=== PATIENT | female | born 1965 | race Caucasian/White ===

== ENCOUNTER 2022-10-06 07:35 | Day surgery (SDC) | payer OTHER ==
[~2022-10-06] VITALS: Ht 162.6 cm; Wt 77.1 kg
[~2022-10-06 07:35] MED LIST: ESTRACE42.5 GM VAGINAL; PRESERVISION A1 EAC4 PO
[2022-10-06 07:55] VITALS: BP 116/61
--- NOTE | 2022-10-06 09:13 | NUR ---
10/06/22 0913 Roma Bell 0910 PATIENT ARRIVES TO PACU RESTING WITH EYES CLOSED. AWAKENS WITH VERBAL STIMULI, BACK TO SLEEP WHEN NOT STIMULATED. RESP EVEN AND UNLABORED, NC AT 3 LITERS TURNED OFF ON ARRIVAL TO PACU. PASSING GAS.
[2022-10-06 09:44] VITALS: BP 107/63
--- NOTE | 2022-10-06 10:03 | NUR ---
PT ALERT, ORIENTED AND HERE FOR HER FIRST SCOPE. PT DEALT WITH PREP OK. HER JUAN CARLOS WILL RETURN AT [facility]. ALL QUESTIONS ASKED ANSWERED. PT REQUESTED PRAYER. WILL FOLLOW
--- NOTE | 2022-10-06 12:48 | OR ---
[facility] [address] [place], [place] [address] Signed DATE OF OPERATION: 10/06/2022 SURGEON: Priscila Ayon MD PREOPERATIVE DIAGNOSIS: Positive Cologuard test. POSTOPERATIVE DIAGNOSES: Polyps x3, small polyp cecum and splenic flexure and hyperplastic polyp of rectosigmoid. PROCEDURE: Total colonoscopy to cecum with cold morcellation polypectomy x3. ANESTHESIA: Intravenous sedation; fentanyl 150 mcg, Versed 6 mg. INDICATION: This 57-year-old white woman is a patient of Dr. Nurys Alexander and is noted to have a positive family history of colon cancer in a maternal aunt. She has no personal history of polyp in the past. She is in good health overall. She had closure of a patent foramen ovale in 2010. She underwent Cologuard testing on March 30, 2022 which was positive and on that basis, colonoscopy is recommended. The risk of bleeding, infection, perforation, and so forth were reviewed with her. She understands and wished to proceed. FINDINGS: The prep was good. Complete colonoscopy was undertaken of the cecum. There were 3 small polyps, 2 of them adenomatous, none of them worrisome for malignancy. There were no other findings of concern. DESCRIPTION OF PROCEDURE: The patient was brought to the endoscopy suite and placed in the lateral decubitus position, given intravenous sedation to the point of slurred speech and nystagmus. Digital rectal examination was normal. An Olympus video colonoscope was passed in the rectum and manipulated throughout the colon ultimately intubating the cecum itself. The ileocecal valve and appendiceal orifice were normal. The scope was withdrawn and in the proximal ascending colon, there was a small adenomatous appearing polyp, this was excised with cold morcellation technique. Further withdrawal showed another similar such polyp at the splenic flexure, Electronically Signed By: PRISCILA AYON MD 10/06/22 1248 PATIENT NAME: STEVE PANTOJA OPERATIVE REPORT DATE OF : 63 REPORT #: [id number] PHYSICIAN: PRISCILA AYON MD PCP: NURYS ALEXANDER MD REPORT IS CONFIDENTIAL AND NOT TO BE RELEASED WITHOUT AUTHORIZATION [facility] [address] [place], [place] [address] Signed which was also excised with cold morcellation technique. Further withdrawal to the rectosigmoid showed a hyperplastic polyp, which was excised, though quite unlikely to be adenomatous. Retroflexed view of the rectum was normal. The scope was removed and the patient was taken to the recovery room in good condition. CONCLUDING DIAGNOSIS: Two adenomatous appearing polyps and one hyperplastic polyp. PLAN: Recommend repeat colonoscopy in three years, sooner if clinically indicated. She will return to the ongoing care of Dr. Alexander. MD ROSMERY Mejía/MODL /[id number] cc: Dr. Nurys Alexander Copies: ~ Electronically Signed By: PRISCILA AYON MD 10/06/22 1248 PATIENT NAME: STEVE PANTOJA OPERATIVE REPORT DATE OF : 63 REPORT #: [id number] PHYSICIAN: PRISCILA AYON MD PCP: NURYS ALEXANDER MD REPORT IS CONFIDENTIAL AND NOT TO BE RELEASED WITHOUT AUTHORIZATION
--- NOTE | 2022-10-09 13:32 | PATH ---
[facility] [address] [place], [place] [address] Signed SPECIMEN(S): A CECUM POLYP SPECIMEN(S): B SPLENIC FLEXURE POLYP SPECIMEN(S): C RECTOSIGMOID POLYP SPECIMEN SOURCE: A. CECUM POLYP B. SPLENIC FLEXURE POLYP C. RECTOSIGMOID POLYP CLINICAL HISTORY: Positive Cologuard, family history of colon CA. Postop: Polyps x 3. FINAL PATHOLOGIC DIAGNOSIS: A. Cecum polyp: - Serrated polyp / adenoma (two fragments). B. Splenic flexure polyp: - Tubular adenoma (one fragment). C. Rectosigmoid polyp: - Hyperplastic polyp (one fragment). JVR:[id number] MICROSCOPIC EXAMINATION: Histologic sections of all submitted blocks are examined by light microscopy. These findings, together with the gross examination, support the pathologic diagnosis. GROSS DESCRIPTION: A. The specimen, labeled and designated "Pantoja, cecum polyp," is received in formalin and consists of four toribio soft tissue fragments, ranging from 0.2-0.5 cm. Entirely submitted in (A1). B. The specimen, labeled and designated "Pantoja, splenic flexure polyp," is received in formalin and consists of two toribio soft tissue fragments, ranging from 0.2-0.3 cm. Entirely submitted in (B1). C. The specimen, labeled and designated "Pantoja, rectosigmoid polyp," is received in formalin and consists of two toribio soft tissue fragments, ranging from 0.1-0.2 cm. Entirely submitted in (C1). VB (under the direct supervision of a pathologist) The Gross Description was prepared using a voice recognition system. The report was reviewed for accuracy; however, sound-alike word errors, addition and/or deletions may occur. If there is any question about this report, please contact Client Services. PATIENT NAME: STEVE PANTOJA PATHOLOGY DATE OF : 63 REPORT #: [id number] PHYSICIAN: SANDHYA NOGUEIRA PCP: SINDI ALEXANDER MD REPORT IS CONFIDENTIAL AND NOT TO BE RELEASED WITHOUT AUTHORIZATION [address] [address] Signed PERFORMING LABORATORY: The technical component was performed by [facility], [address] [place] [address] (CLIA# [id number]). Professional interpretation was performed by [facility], [address] [place] [id number] (CLIA#: [id number]). Diagnostician: Chandler Harris MD Pathologist Electronically Signed 10/09/2022 Copies: ~ PATIENT NAME: STEVE PANTOJA PATHOLOGY DATE OF : 63 REPORT #: [id number] PHYSICIAN: SANDHYA NOGUEIRA PCP: SINDI ALEXANDER MD REPORT IS CONFIDENTIAL AND NOT TO BE RELEASED WITHOUT AUTHORIZATION
== END 2022-10-06 10:00 | disposition home or self-care (01) ==
LOC: OPS 07:35 → DS 07:40 → OPS 08:15
PROVIDERS: ATTEND Surgery
DX: D12.0 Benign neoplasm of cecum (principal); D12.3 Benign neoplasm of transverse colon; K62.1 Rectal polyp; Z80.0 Family history of malignant neoplasm of digestive organs; Q21.12 Patent foramen ovale; K21.9 Gastro-esophageal reflux disease without esophagitis; Z88.0 Allergy status to penicillin; Z79.899 Other long term (current) drug therapy
CPT/HCPCS: 99153; G0500; J2250; J3010; J7121

== ENCOUNTER 2024-01-21 07:38 | Day surgery (SDC) | payer OTHER ==
[~2024-01-21] VITALS: Ht 162.6 cm; Wt 80.7 kg
[~2024-01-21 07:38] MED LIST changes: +IBLOOD GLUCOSE TEST STRIP 1 EA TEST VI PRN; +LACTATED RINGER'S 1,000 ML IV SCH; +LIDOCAINE HCL 1% 5 ML SDV INJ ONE; +MIDAZOLAM HCL 5 MG/5 ML VIAL IV PRN; +fentaNYL citrate 100 MCG/2 ML VIAL IV PRN
[2024-01-21 08:07] VITALS: BP 114/61
[2024-01-21] MEDS ORDERED: fentaNYL citrate 100 MCG/2 ML VIAL ONE (08:08)
[2024-01-21] MEDS ORDERED: MIDAZOLAM HCL 5 MG/5 ML VIAL ONE (08:08)
--- NOTE | 2024-01-21 09:05 | NUR ---
01/21/24 0905 Venkata Marcial 0855: PT ARRIVED TO PACU VIA STRETCHER. PT DROWSY BUT ANSERING QUESTIONS WITHOUT DIFFICULTY. PT ON 3L NC. PT DENIES PAIN OR NAUSEA.
[2024-01-21 09:28] VITALS: BP 107/50
--- NOTE | 2024-01-21 13:20 | OR ---
[facility] [address] [place], [place] [address] Signed DATE OF OPERATION: 01/21/2024 SURGEON: Priscila Ayon MD PREOPERATIVE DIAGNOSES: History of serrated adenoma of cecum October 2022 as well as hyperplastic polyp and tubular adenoma. POSTOPERATIVE DIAGNOSIS: Small polyp right colon, excised. PROCEDURE: Total colonoscopy to cecum with cold morcellation polypectomy x1. ANESTHESIA: Intravenous sedation; fentanyl 100 mcg, Versed 6 mg. INDICATION: This 59-year-old white woman is a patient of Dr. Alexander and underwent colonoscopy by me on October 06, 2022, where she was found to have a hyperplastic polyp, tubular adenoma and a serrated adenoma of the cecum. On the basis of her serrated histology, I have recommended short-term colonoscopy repeat. The risk of bleeding, infection, and perforation related to colonoscopy was reviewed with her. She understands and wished to proceed. FINDINGS: The prep was excellent. Complete colonoscopy was undertaken to the cecum. There was no sign of recurrent or persistent polyp of the cecum, but there was a small relatively flat polyp of the mid ascending colon which was excised with cold morcellation technique. The remaining colon was normal. DESCRIPTION OF PROCEDURE: The patient was brought to the endoscopy suite and placed in the lateral decubitus position, given intravenous sedation to the point of slurred speech and nystagmus with full cardiopulmonary monitoring. Digital rectal examination was normal. An Olympus video colonoscope was passed in the rectum and manipulated throughout the colon ultimately intubating the cecum itself. Thorough and complete examination of the cecum was accomplished without problem. The scope was then withdrawn and in the mid ascending colon there was a small relatively flat polyp, this was excised with cold morcellation technique completely. Further withdrawal showed no other abnormality. Electronically Signed By: PRISCILA AYON MD 01/21/24 1320 PATIENT NAME: STEVE PANTOJA OPERATIVE REPORT DATE OF : 63 REPORT #: [id number] PHYSICIAN: PRISCILA AYON MD PCP: SINDI ALEXANDER MD REPORT IS CONFIDENTIAL AND NOT TO BE RELEASED WITHOUT AUTHORIZATION [facility] [address] [place], [place] [address] Signed Retroflexed view was normal. Scope was removed and the patient was taken to the recovery room in good condition. CONCLUDING DIAGNOSIS: Polyp x1. PLAN: Recommend repeat colonoscopy in 3 to 5 years depending on histology of the polyp. She will return to the ongoing care of Dr. Alexander. MD ROSMERY Mejía/MODL /[id number] cc: Dr. Alexander. Copies: ~ Electronically Signed By: PRISCILA AYON MD 01/21/24 1320 PATIENT NAME: STEVE PANTOJA OPERATIVE REPORT DATE OF : 63 REPORT #: [id number] PHYSICIAN: PRISCILA AYON MD PCP: SINDI ALEXANDER MD REPORT IS CONFIDENTIAL AND NOT TO BE RELEASED WITHOUT AUTHORIZATION
== END 2024-01-21 09:40 | disposition home or self-care (01) ==
LOC: DS 07:38
PROVIDERS: ATTEND Surgery
PROC: 0DBK8ZZ Excision of Ascending Colon, Via Natural or Artificial Opening Endoscopic (ICD-10-PCS; principal; 2024-01-21 08:30)
DX: D12.2 Benign neoplasm of ascending colon (principal); Q21.12 Patent foramen ovale; Z80.0 Family history of malignant neoplasm of digestive organs; Z88.0 Allergy status to penicillin
CPT/HCPCS: 99153; G0500; J2250; J3010; J7121